=== PATIENT | female | born 1950 | race Hispanic/Latino ===

== ENCOUNTER 2016-07-19 11:46 | Outpatient (CLI) | payer MEDICARE ==
--- NOTE | 2016-07-21 10:41 | XRay Report ---
LUMBOSACRAL SPINE, 3 VIEWS: History: Back pain Findings: There is mild osteopenia. Normal height and alignment of the lumbar vertebra. Mild multilevel degenerative disc disease and moderate multilevel facet arthropathy have not significantly changed since 03/11/14. No evidence for compression deformity or bone lesion. The visualized sacrum is intact. Impression: Osteopenia. Degenerative changes. No overwhelming change since 03/11/14.
--- NOTE | 2016-07-22 09:51 | XRay Report ---
THORACIC SPINE, 2 VIEWS HISTORY: Chronic back pain FINDINGS: There is borderline osteopenia. Mild levocurvature is present in the lower thoracic region. There is moderate multilevel degenerative disc spurring. No evidence for compression deformity, bone lesion or subluxation. The posterior ribs are grossly intact. IMPRESSION: Thoracic spondylosis.
== END 2016-07-19 11:47 | disposition home or self-care (01) ==
LOC: SPVIMAG 11:46
PROVIDERS: ATTEND Internal Medicine
DX: M47.897 Other spondylosis, lumbosacral region (principal); M85.88 Other specified disorders of bone density and structure, other site; M51.37 Other intervertebral disc degeneration, lumbosacral region; M12.88 Other specific arthropathies, not elsewhere classified, other specified site
CPT/HCPCS: 72072; 72100

== ENCOUNTER 2016-10-21 08:55 | Outpatient (CLI) | payer BC ==
--- NOTE | 2016-10-22 09:22 | Mammography Report ---
Bilateral mammogram: Compared to 10/04/15. CAD study utilized. Findings: Predominance adipose tissue bilaterally. No mass or microcalcification. Normal axilla. Impression: Benign findings. Annual followup recommended. BI-RADS CATEGORY: 2 = Benign ACR BI-RADS MAMMOGRAPHIC CODES: 0 = Needs additional imaging evaluation; 1 = Negative; 2 = Benign; 3 = Probably benign; 4 = Suspicious; 5 = Malignant; 6 = Known biopsy-proven malignancy COMMENT: 1. Dense breast tissue, i.e., adenosis, fibrocystic changes, etc., may obscure an underlying neoplasm. 2. Approximately 10% of cancers are not detected with mammography. 3. A negative mammography report should not delay biopsy if a clinically suspicious mass is present. COMMENT: Patient follow-up letters are generated in [place].
== END 2016-10-21 08:56 | disposition home or self-care (01) ==
LOC: SPVWC 08:55
PROVIDERS: ATTEND Internal Medicine
DX: Z12.31 Encounter for screening mammogram for malignant neoplasm of breast (principal)
CPT/HCPCS: 77067; G0202